=== PATIENT | male | born 1980 | race Asian ===

== ENCOUNTER 2020-07-09 12:15 | Emergency (ER) | payer OTHER ==
[2020-07-09 12:23] VITALS: BP 150/100
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
[2020-07-09] MEDS ORDERED: KETOROLAC 30 MG/ML VIAL IM STA (12:54)
== END 2020-07-09 13:12 | disposition home or self-care (01) ==
LOC: ED 12:15
DX: S29.011A Strain of muscle and tendon of front wall of thorax, initial encounter (principal); S46.812A Strain of other muscles, fascia and tendons at shoulder and upper arm level, left arm, initial encounter; V43.52XA Car driver injured in collision with other type car in traffic accident, initial encounter; Y92.410 Unspecified street and highway as the place of occurrence of the external cause
CPT/HCPCS: 96372; 99283; 99284

== ENCOUNTER 2020-07-15 00:59 | Emergency (ER) | payer OTHER ==
--- NOTE | 2020-07-15 01:03 | ED Physician Documentation ---
History of Present Illness - Stated complaint Stated Complaint: CP - History obtained from History obtained from: Patient - Additonal information Additional information: 39-year-old otherwise healthy male presents with chest pain while at rest now he is noticing chest discomfort with exertion. Presents to the emergency department for evaluation. Denies any syncope or lower extremity swelling or fevers or hemoptysis no history of PE or DVT no family history of sudden or VA under the age of 40 and mother, father, brother sister. Review of Systems Constitutional: reports: Reviewed and negative Eyes: reports: Reviewed and negative Ears: reports: Reviewed and negative Nose: reports: Reviewed and negative Throat: reports: Reviewed and negative Cardiac: reports: Chest pain / pressure Respiratory: reports: Reviewed and negative GI: reports: Reviewed and negative : reports: Reviewed and negative Skin: reports: Reviewed and negative Musculoskeletal: reports: Reviewed and negative Neurologic: reports: Reviewed and negative Psychiatric: reports: Reviewed and negative Endocrine: reports: Reviewed and negative Immunocompromised: reports: Reviewed and negative PD PAST MEDICAL HISTORY - Past Surgical History Past Surgical History: No - Present Medications Home Medications: Ambulatory Orders Medication Instructions Recorded Confirmed Cyclobenzaprine [Flexeril] 10 mg PO TID PRN #20 tablet 07/09/20 - Allergies Allergies/Adverse Reactions: Allergies Allergy/AdvReac Type Severity Reaction Status Date / Time No Known Drug Allergies Allergy Verified 07/15/20 01:10 - Social History Does the pt smoke?: No Smoking Status: Never smoker Does the pt drink ETOH?: No Does the pt have substance abuse?: No - Immunizations Immunizations are current?: Yes - POLST Patient has POLST: No PD ED PE NORMAL - Vitals Vital signs reviewed: Yes - General General: Alert and oriented X 3, No acute distress, Well developed/nourished - HEENT HEENT: Atraumatic, PERRL, Moist mucous membranes, Pharynx benign - Neck Neck: Supple, no meningeal sign, No adenopathy, Thyroid normal - Cardiac Cardiac: RRR, No murmur, Strong equal pulses - Respiratory Respiratory: No respiratory distress, Clear bilaterally - Abdomen Abdomen: Normal bowel sounds, Soft, Non tender, Non distended, No organomegaly - Male Male : Deferred - Rectal Rectal: Deferred - Back Back: No CVA TTP, No spinal TTP - Derm Derm: Normal color, Warm and dry, No rash - Extremities Extremities: No deformity, No tenderness to palpate, Normal ROM s pain, No edema, No calf tenderness / cord - Neuro Neuro: Alert and oriented X 3, political analyst 2-12 intact, No motor deficit, No sensory deficit, Normal speech - Psych Psych: Normal mood, Normal affect Results - Vitals Vitals: Vital Signs - 24 hr 07/15/20 07/15/20 07/15/20 01:06 03:20 03:32 Temperature 36.0 C L Heart Rate 76 55 L 51 L Respiratory 18 16 14 Rate Blood Pressure 154/105 H 121/88 H O2 Saturation 100 100 100 Oxygen O2 Source Room air - EKG (time done) 01:03 Rate: Other (no stemi) 02:01 Rate: Other (no stemi, abnormal EKG) 04:11 Rate: Other (no STEMI. abormal EKG.) - Labs Labs: Laboratory Tests 07/15/20 07/15/20 07/15/20 01:10 01:10 01:10 WBC 15.0 H RBC 5.03 Hgb 15.0 Hct 44.2 MCV 87.9 MCH 29.8 MCHC 33.9 RDW 12.7 Plt Count 255 MPV 10.5 Neut # (Auto) 10.4 H Lymph # (Auto) 3.3 [place] # (Auto) 0.6 Eos # (Auto) 0.5 Baso # (Auto) 0.1 Absolute Nucleated RBC 0.00 Nucleated RBC % 0.0 Anti-Xa Level Sodium 137 Potassium 3.2 L Chloride 101 Carbon Dioxide 26 Anion Gap 10.0 BUN 17 Creatinine 1.3 H Estimated GFR (MDRD) 61 L Glucose 140 H Lactic Acid Calcium 9.4 Total Bilirubin 0.7 AST 28 ALT 46 Alkaline Phosphatase 88 Troponin I High Sens 48.0 H* B-Natriuretic Peptide Total Protein 7.8 Albumin 4.6 Globulin 3.2 Albumin/Globulin Ratio 1.4 Lipase 29 07/15/20 07/15/20 07/15/20 01:10 03:15 03:40 WBC RBC Hgb Hct MCV MCH MCHC RDW Plt Count MPV Neut # (Auto) Lymph # (Auto) [place] # (Auto) Eos # (Auto) Baso # (Auto) Absolute Nucleated RBC Nucleated RBC % Anti-Xa Level 0.0 Sodium Potassium Chloride Carbon Dioxide Anion Gap BUN Creatinine Estimated GFR (MDRD) Glucose Lactic Acid Calcium Total Bilirubin AST ALT Alkaline Phosphatase Troponin I High Sens 771.8 H* B-Natriuretic Peptide 9 Total Protein Albumin Globulin Albumin/Globulin Ratio Lipase 07/15/20 03:45 WBC RBC Hgb Hct MCV MCH MCHC RDW Plt Count MPV Neut # (Auto) Lymph # (Auto) [place] # (Auto) Eos # (Auto) Baso # (Auto) Absolute Nucleated RBC Nucleated RBC % Anti-Xa Level Sodium Potassium Chloride Carbon Dioxide Anion Gap BUN Creatinine Estimated GFR (MDRD) Glucose Lactic Acid 1.4 Calcium Total Bilirubin AST ALT Alkaline Phosphatase Troponin I High Sens B-Natriuretic Peptide Total Protein Albumin Globulin Albumin/Globulin Ratio Lipase PD MEDICAL DECISION MAKING - ED course Complexity details: reviewed results, re-evaluated patient (05:02 patient pain free. leaving now via life flight.), considered differential, d/w patient ED course: 39-year-old male with chest pain first EKG shows no STEMI second EKG does show some mild ST elevation but no STEMI. His troponin is elevated however chest x- ray shows no widened mediastinum or pneumothorax. Patient will be started on heparin drip as well as provided aspirin and nitroglycerin and we will be transfer to higher level of care. Throughout his stay here in the emergency department the patient has been pain-free after received his initial dose of aspirin and sublingual nitro as well as 4 mg of morphine is noted that his troponin is significantly elevated up to 770. At that time the EKG was repeated he is pain-free at this time there is no obvious STEMI does show some mild ST elevation in the anterior leads but there is no reciprocal changes. There is no biphasic T waves. I did speak with the accepting physician at [facility] Dr. cisneros who is agreed to accept this patient. I am attempting to expeditiously transfer this patient.Patient updated and agreeable to plan. Currently at 0 4:52 AM he continues to be pain-free. - Consults Consults: Discussed case with (dr. Cisneros at [facility] who has graciously agreed to accept this patient.) - Critical Care Time(min): 30 Time Includes: Direct patient care, Review records, Reassess patient, Document care, Coordinate care, Medical consult Data interpretation: Labs, CXR, Prior EKG Procedures included in critical care time: Peripheral IV Procedures excluded from critical care time: EKG Departure - Departure Disposition: 02 Transfer Acute Care Hosp Clinical Impression: NSTEMI (non-ST elevated myocardial infarction), Infiltrate of lung present on computed tomography, Elevated troponin Leukocytosis Qualifiers: Leukocytosis type: other Qualified Code(s): D72.828 - Other elevated white blood cell count Condition: Stable
[2020-07-15 01:25] LABS: BASOPHILS # (AUTO) 0.1 10^3/uL (0.0-0.1); BASOPHILS % (AUTO) 0.5 %; EOSINOPHILS # (AUTO) 0.5 10^3/uL (0.0-0.7); EOSINOPHILS % (AUTO) 3.4 %; LYMPHOCYTES # (AUTO) 3.3 10^3/uL (1.5-3.5); LYMPHOCYTES % (AUTO) 22.2 %; MEAN CORPUSCULAR HEMOGLOBIN 29.8 pg (27.0-31.0); MEAN CORPUSCULAR HGB CONC 33.9 g/dL (32.0-36.0); MEAN CORPUSCULAR VOLUME 87.9 fL (80.0-94.0); MEAN PLATELET VOLUME 10.5 fL (7.4-11.4); MONOCYTES # (AUTO) 0.6 10^3/uL (0.0-1.0); MONOCYTES % (AUTO) 3.7 %; NEUTROPHILS # (AUTO) 10.4 10^3/uL (1.5-6.6); NEUTROPHILS % (AUTO) 69.4 %; PLT - PLATELET COUNT 255 10^3/uL (130-450); RED BLOOD COUNT 5.03 10^6/uL (4.70-6.10); RED CELL DISTRIBUTION WIDTH 12.7 % (12.0-15.0)
[2020-07-15 01:34] LABS: ALBUMIN 4.6 g/dL (3.2-5.5); ALBUMIN/GLOBULIN RATIO 1.4 (1.0-2.2); BILIRUBIN,TOTAL 0.7 mg/dL (0.2-1.0); CALCIUM 9.4 mg/dL (8.5-10.3); CREATININE 1.3 mg/dL (0.6-1.2); TOTAL PROTEIN 7.8 g/dL (6.7-8.2)
[2020-07-15] MEDS ORDERED: SODIUM CHLORIDE 0.9% 1,000 ML IV STA (01:48)
[2020-07-15] MEDS ORDERED: KETOROLAC 30 MG/ML VIAL IVP STA (01:50)
[2020-07-15] MEDS ORDERED: NITROGLYCERIN SL 0.4 MG TABLET SL PRN (01:54)
[2020-07-15] MEDS ORDERED: ASPIRIN 325 MG TABLET PO STA (01:54)
[2020-07-15] MEDS ORDERED: IOVERSOL 320 100 ML VIAL IVP ONE ×2 (02:04→02:44)
[2020-07-15] MEDS ORDERED: MORPHINE 2 MG/ML CARPUJECT IVP STA (02:06)
[2020-07-15] MEDS ORDERED: ONDANSETRON 4 MG/2 ML VIAL IVP STA (02:06)
[2020-07-15] MEDS ORDERED: HEPARIN 25000UNITS/500ML (D5W) 25,000 UNIT/500 ML BAG IV SCH (03:00)
[2020-07-15] MEDS ORDERED: cefTRIAXone 1 GM VIAL IVP STA (03:39)
[2020-07-15 05:01] VITALS: BP 150/85
--- NOTE | 2020-07-15 07:36 | CT Report ---
PROCEDURE: ANGIO CHEST W/WO INDICATIONS: cp sob CONTRAST: IV CONTRAST: Optiray 320 ml: 56 PO CONTRAST: *NO PO CONTRAST TECHNIQUE: After the administration of intravenous contrast, 2 mm thick sections acquired from the pulmonary api abigail to the posterior costophrenic angles. 3-dimensional maximum intensity projection (MIP) coronal a nd sagittal reformats were then acquired through the thorax. For radiation dose reduction, the follow ing was used: automated exposure control, adjustment of mA and/or kV according to patient size. COMPARISON: 1 chest x-ray 07/15/2020 FINDINGS: Image quality: Excellent. Pulmonary arteries: Pulmonary arteries are normal in size, and demonstrate no intraluminal filling d efects to suggest central pulmonary embolism. Lungs and pleura: Small airspace opacity noted in the left lower lobe. No pleural effusions or pneumo thorax. Central and peripheral airways are patent. Mediastinum: Heart size is normal, without pericardial effusion. No mediastinal or hilar adenopathy . Thoracic aorta is normal in caliber and enhancement. Esophagus is normal in caliber, without hiat al hernia. Bones and chest wall: No suspicious bony lesions. Sclerotic density noted in the anterior right sixt h anterolateral left seventh rib most compatible with bone islands. Ribs and thoracic spine appear in tact throughout. The thyroid is normal. No axillary or supraclavicular adenopathy. Abdomen: Visualized upper abdominal solid organs appear normal in the early arterial phase of enhanc ement. IMPRESSION: 1. No pulmonary embolus. 2. Patchy airspace opacity in the left lower lobe which could represent aspiration versus pneumonia. 3. No abnormal mass or nodule identified in the right lung. Reviewed by: Zoie Vanegas MD, PhD on 07/15/2020 7:35 AM PDT Approved by: Zoie Vanegas MD, PhD on 07/15/2020 7:35 AM PDT Station ID: [id number]
--- NOTE | 2020-07-15 07:40 | XRAY Report ---
PROCEDURE: Chest 1 View X-Ray INDICATIONS: Chest pain TECHNIQUE: One view of the chest was acquired. COMPARISON: None FINDINGS: Surgical changes and devices: None. Lungs and pleura: No pleural effusions or pneumothorax. Lungs are clear of acute opacities. Nodular- like opacity is noted in the right lung base projecting over the anterolateral margin of the right si xth rib. Mediastinum: Mediastinal contours appear normal. Heart size is normal. Bones and chest wall: No suspicious bony lesions. Overlying soft tissues appear unremarkable. IMPRESSION: 1. No acute cardiopulmonary disease process. 2. Nodule-like opacity noted in the right lung base which could represent lung parenchymal nodule or right sixth rib lesion. Recommend CT scan of the chest for additional evaluation. Reviewed by: Zoie Vanegas MD, PhD on 07/15/2020 7:39 AM PDT Approved by: Zoie Vanegas MD, PhD on 07/15/2020 7:39 AM PDT Station ID: [id number]
== END 2020-07-15 05:01 | disposition short-term general hospital (02) ==
LOC: ED 00:59
DX: I21.4 Non-ST elevation (NSTEMI) myocardial infarction (principal); D72.828 Other elevated white blood cell count
CPT/HCPCS: 36415; 71045; 71275; 80053; 83605; 83690; 83880; 84484; 85025; 85520; 87040; 93005; 96361; 96374; 96375; 99291; A9270; Q9967